=== PATIENT | female | born 1930 | race Caucasian/White ===

== ENCOUNTER 2017-01-29 14:24 | Inpatient (IN) | payer MEDICARE, OTHER ==
--- NOTE | ~2017-01-29 | CN ---
Consultation Report [facility] [address] [place]. [address] NAME: RAÚL MESSINA : 32 STATUS : ADM IN PAT#: [id number] AGE: 86 ADM/REG DATE : 01/29/17 MR#: [id number] REPORT SERV DATE: 02/02/17 DICTATED BY: JHONATAN GRAHAM DATE: 02/02/17 REPORT STATUS : Draft TRANSCRIBED BY: MODDonna DATE: 02/02/17 INFECTIOUS DISEASE CONSULT DATE OF CONSULTATION: REASON FOR REFERRAL: Evaluation and treatment of genitourinary tract infection associated with sepsis. HISTORY OF PRESENT ILLNESS: The patient is an 86-year-old female, she has a history of hypertension, hypothyroidism, CLL, and recurrent urinary tract infections that have generally been associated with stones. She began feeling ill about a week before 01/27/2017 emergency room visit, she had fevers, chills, nausea, and vomiting. She was very reluctant to be seen, but eventually consented to come in on 01/27/2017 and get checked out. She was there through the evening and early 01/28/2017. She had a markedly abnormal urinalysis greater than 182 white blood cells. It was felt to be the cause of her illness. She had cultures taken, received one dose of Rocephin animal chiropractor of 01/28/2017, and then was discharged on Macrodantin. She had a blood culture that came up early on 01/29/2017, that is positive for E coli, one of two, so, she was called back in and admitted and started on first Zosyn in the emergency room along with a dose of vancomycin for unclear reason. She got one dose of Levaquin and after two days when the sensitivity of the organism returned, it was changed to Rocephin. She quickly improved, had no fever here. White blood cell count is markedly abnormal because of her CLL, and has been hard to use as a guide, but generally she is steadily improving. It was elected to give her a 10-day course of Rocephin after discussions with Infectious Disease because she has a prosthetic hip. She had a PICC line placed yesterday. She was evaluated by Urology while here and as she has stone, she has evidence of hydronephrosis on the right and pyelonephritis on imaging. There was no obstructions and no indication for procedure. She will continue to be followed closely by Urology after discharge. PAST MEDICAL HISTORY: Otherwise unremarkable. MEDICATIONS: She is on Rocephin. ALLERGIES: SHE HAS NO KNOWN ANTIMICROBIAL ALLERGIES. SOCIAL HISTORY: She is single. 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 Nonsmoker. No history of alcohol or substance abuse. FAMILY HISTORY: Noncontributory. PHYSICAL EXAMINATION: GENERAL: A nontoxic elderly female, in no acute distress. She is alert and oriented x3. VITAL SIGNS: Her temperature is 98.5, pulse 73, respirations 18, blood pressure 157/70, and Consultation Report [place] [id number] [facility] [place]. [address] NAME: RAÚL MESSINA : 32 STATUS : ADM IN [facility]#: [id number] AGE: 86 ADM/REG DATE : 01/29/17 MR#: [id number] REPORT SERV DATE: 02/02/17 DICTATED BY: JHONATAN GRAHAM DATE: 02/02/17 REPORT STATUS : Draft TRANSCRIBED BY: MEEK DATE: 02/02/17 weight 70 kg. HEENT: Sclerae clear. No oral lesions. NECK: Supple without lymphadenopathy. LUNGS: There are some crackles in the bases otherwise clear. HEART: Regular rate and rhythm. ABDOMEN: Soft and nontender. Positive bowel sounds. No masses or hepatosplenomegaly. No costovertebral angle tenderness. EXTREMITIES: Without clubbing, cyanosis, or edema. No swollen, red, or hot joints. No skin lesions or rashes and a new PICC line site looks good in the left upper extremity. She has puncture sites on the right where attempts were initially made to place it there that were unsuccessful, but none of those appear to be inflamed. LABORATORY DATA: White count was 64.7 when she came, last time it was checked on 01/30/2017 it was 55.2, with hematocrit of 31.2, platelets 224, 20 segs and no bands on the differential. BUN and creatinine 22 and 1.4, creatinine had been 1.8 as a high on 01/29/2017. IMPRESSION: Pyelonephritis with associated sepsis, due to Escherichia coli and in turn likely all due originally to stone. She is doing much better. Repeat blood cultures done on 01/29/2017 were negative. A repeat urine culture on 01/29/2017 evening also was negative. RECOMMENDATIONS: 1. I agree with Rocephin. 2. We will discharge today, now that she has a PICC line, and I will arrange home IV therapy using Rocephin to go through 02/08/2017. I will follow the patient here if she is not discharged today or as needed as an outpatient if she is discharged. I appreciate very much your consulting on this patient. JAYLON/MEEK Jhonatan Graham M.D. / [id number] CC: Brad Arrington Jr, MD Mary Hammock, M.D. William Young Jr., M.D.
--- NOTE | ~2017-01-29 | IDS ---
Interim Discharge Summary [facility] [address] [place]. [address] NAME: RAÚL MESSINA : 32 STATUS : ADM IN PAT#: [id number] AGE: 86 ADM/REG DATE : 01/29/17 MR#: [id number] REPORT SERV DATE: 02/01/17 DICTATED BY: JR. ARRINGTON WILLIAM JOHN DATE: 02/01/17 REPORT STATUS : Draft TRANSCRIBED BY: MODL DATE: 02/01/17 ADMISSION DATE: 01/29/2017 DISCHARGE DATE: Anticipate discharge in the morning. WORKING DIAGNOSES: Include, 1. 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 2. Left hydronephrosis with renal stones. 3. Acute kidney injury. 4. Hypoxic respiratory failure. 5. Chronic lymphocytic leukemia. 6. Hypertension. 7. Hyperkalemia. OPERATIONS, PROCEDURES, AND TREATMENTS: Include, 1. Blood cultures done 01/28/2017 grew one of four bottles of Escherichia coli. 2. Urine culture done 01/28/2017, which grew Escherichia coli, sensitive to nitrofurantoin, gentamicin, cefazolin, tobramycin, aztreonam, Bactrim, and Zosyn. 3. Followup blood cultures on 01/29/2017 were sterile today. 4. Follow up urine culture on 01/29/2017 is no growth to date. 5. Chest x-ray done 01/29/2017 showed atelectasis with large hiatal hernia. 6. CT of the chest, abdomen, and pelvis done 01/29/2017 showed bilateral nephrolithiasis with left hydronephrosis. Mild hydroureter and periureteral and perinephric stranding suggestive of obstructing stone. 7. Right basilar atelectasis with more confluent infiltrate and accompanying effusion in the base. 8. PICC line insertion, done 02/01/2017. CONSULTING PHYSICIAN: Include Dr. Jarrod Savage of Urology. ANTICIPATED DISCHARGE MEDICATIONS: Include, 1. Norvasc 10 mg orally daily. 2. Rocephin 1 g IV daily through 02/10/2017. 3. Cholestyramine 4 g orally daily. 4. Synthroid 75 mcg orally daily. 5. Oxybutynin 10 mg orally three times a day. 6. Clonidine 0.2 mg twice a day. 7. Meclizine 25 mg three times a day as needed. 8. Tramadol 50 mg daily as needed. HOSPITAL COURSE: The patient is a very pleasant 86-year-old female with a history of CLL who presented to the emergency room with complaint of urinary tract infection and bacteremia. Apparently, the patient has been in the emergency room in the previous few days and had one culture positive for Escherichia coli with call to return to the hospital. She had no new Interim Discharge Summary [address] [address] NAME: RAÚL MESSINA : 32 STATUS : ADM IN PAT#: [id number] AGE: 86 ADM/REG DATE : 01/29/17 MR#: [id number] REPORT SERV DATE: 02/01/17 DICTATED BY: JR. ARRINGTON WILLIAM JOHN DATE: 02/01/17 REPORT STATUS : Draft TRANSCRIBED BY: MEEK DATE: 02/01/17 complaints. On an initial exam, she was afebrile. Blood pressure is 121/60, heart rate 80, respiratory rate of 18, she was saturating 86% on room air with 92% on 3 L oxygen. Exam was otherwise unremarkable. Review of her culture data did show Escherichia coli in the blood and urine. The patient is admitted to the hospital for urinary tract infection with bacteremia. CT of the chest, abdomen, and pelvis were reviewed did show what appeared to be hydronephrosis with kidney stones. Nephrology saw the patient, felt this was not obstructive and recommended outpatient followup with Dr. Warner. In addition, I did discuss the Escherichia coli presence in the blood with Dr. Armas of Infectious Disease. He felt the presence of metallic prostheses in the hip and knee, this patient would require IV antibiotics for a 10- day course. Fluoroquinolones were resistant. We had placed a PICC line and the plan is to discharge the patient home on IV ceftriaxone 1 g IV daily through 02/10/2017. Regarding the patient's hypoxic respiratory failure, this likely is a chronic condition. We will check a desaturation study and set the patient up for home oxygen if needed. The patient did have multiple episodes of hyperkalemia. A review of the literature does show that with a quite elevated white blood counts in CLL, this can be a spurious finding if the sample is at room temperature for a period of time prior to this sampling. We will plan to repeat the study now, and if the potassium remains elevated, we will go ahead and treat this and recheck in the morning. Anticipate discharge the patient home tomorrow. FOLLOWUP INSTRUCTIONS: 1. Will need IV Rocephin 1 g IV daily through 02/10/2017. 2. Follow up with primary care provider, Dr. Clarice Garrett in one to two weeks. 3. Follow up with Dr. Warner in two weeks regarding kidney stones and possible hydronephrosis. 4. May need home oxygen. 5. For today's exam and laboratory, please see daily progress note. WJF/MODL Brad Arrington Jr, MD / [id number] CC: Brad Arrington Jr, MD Mary Hammock, M.D.
--- NOTE | ~2017-01-29 | CN ---
Consultation Report [facility] [address] [place]. [address] NAME: RAÚL CHRISTIE : 32 STATUS : ADM IN PAT#: [id number] AGE: 86 ADM/REG DATE : 01/29/17 MR#: [id number] REPORT SERV DATE: 01/30/17 DICTATED BY: JARROD XIONG III DATE: 01/30/17 REPORT STATUS : Draft TRANSCRIBED BY: MODL DATE: 01/30/17 DATE OF CONSULTATION: REASON FOR CONSULTATION: Urinary tract infection and bacteremia and left hydronephrosis. HISTORY OF PRESENT ILLNESS: Ms. Christie is 86-year-old white female, who is a patient Dr. Brad Warner secondary to nephrolithiasis. She recently had blood cultures, which were positive, and a positive urine culture. She is being admitted by the hospitalist. I am asked to see regarding her stones and left hydronephrosis and perinephric stranding. PAST MEDICAL HISTORY: Nephrolithiasis, cataracts, hypertension, hypercholesterolemia, sleep apnea, arthritis, irritable bowel syndrome, incontinence, and CLL. SURGICAL HISTORY: Back surgery in 1997, cataracts, left total hip replacement, hysterectomy, right knee scope. MEDICATIONS: Home medications are reviewed. ALLERGIES: SHE IS ALLERGIC TO NICARDIPINE. PHYSICAL EXAMINATION: VITAL SIGNS: The patient currently is afebrile with stable vital signs. GENERAL: She is awake, alert, and appears comfortable. She does have some left-sided tenderness. LABORATORY DATA: BUN and creatinine are 32 and 1.69. Repeat blood culture is pending. IMAGING: CT scan is reviewed and she does have bilateral stones over there in the periphery of the kidneys. There is dilation of the renal pelvis on the left and in the proximal ureter, but no stone is noted. ASSESSMENT: 1. Left pyelonephritis. 2. Left hydronephrosis. I believe this hydronephrosis is secondary to inflammation from the infection and not from an obstructing stone. 3. Urinary tract infection. RECOMMENDATION: I do not feel that a stent is warranted at this point in time and that the dilation and perinephric stranding will resolve with treatment of the infection. Her stones will need to be addressed after treatment of the infection in the future. PH/MODL Consultation Report [facility] [address] [place]. [address] NAME: RAÚL CHRISTIE : 32 STATUS : ADM IN PAT#: [id number] AGE: 86 ADM/REG DATE : 01/29/17 MR#: [id number] REPORT SERV DATE: 01/30/17 DICTATED BY: JARROD XIONG III DATE: 01/30/17 REPORT STATUS : Draft TRANSCRIBED BY: MODL DATE: 01/30/17 Jarrod Xiong III, M.D. / [id number] CC: Brad Arrington Jr, MD Mary Hammock, M.D.
--- NOTE | ~2017-01-29 | HP ---
History And Physical [facility] [address] [place]. [address] NAME: RAÚL MESSINA : 32 STATUS : ADM IN PAT#: [id number] AGE: 86 ADM/REG DATE : 01/29/17 MR#: [id number] REPORT SERV DATE: 01/29/17 DICTATED BY: NICOLETTE VERAS DATE: 01/29/17 REPORT STATUS : Draft TRANSCRIBED BY: MODL DATE: 01/29/17 DATE OF ADMISSION: 01/29/2017 CHIEF COMPLAINT: Urinary tract infection and "bacteremia". HISTORY OF PRESENT ILLNESS: This is a very pleasant 86 years old female. She has a history of CLL, history of recurrent urinary tract infections, history of hypertension, hypothyroidism, and urinary incontinence, and chronic diarrhea, presenting today to [facility] Emergency Room after she has been called home last night due to the presence of blood cultures positive for E coli. The patient has a history of recurrent urinary tract infection. About one week ago, she got sick with fever and chills, nausea and vomiting. She really did not want to go to a hospital to be assessed and evaluated nor to her primary care provider. However, she had been so weak and not feeling well on 01/27/2017. She came today to [facility] Emergency Room. She has been diagnosed with urinary tract infection, placed on Macrobid, and discharged home. Last night, she has been called by the pharmacist since one of the blood cultures came back positive for E coli and as a result, she did not want to come yesterday to hospital, but she decided to come today after she went to work. She did not feel worse, but she did have some weakness and appetite, subjective fever nor any more nausea or vomiting. No diarrhea or constipation. No hematemesis or melena. No hematochezia. No shortness of breath. No chest pain. No palpitations. No other complaints. The patient has been evaluated in the emergency room, and Hospitalist Service has been asked for admission, further evaluation, and treatment. PAST MEDICAL HISTORY: Significant for hypertension, recurrent UTI, urinary incontinence, degenerative joint disease, osteoarthritis, hypothyroidism, and social history. PAST SURGICAL HISTORY: Includes left hip replacement, left total knee replacement, and hysterectomy. PAST SOCIAL HISTORY: The patient denies tobacco, alcohol, or IV drugs. ALLERGIES: SHE IS ALLERGIC TO NICARDIPINE. MEDICATIONS AT HOME: Include Norvasc, Prevalite, Catapres, Synthroid, Antivert, Macrobid, Ditropan, Ultram, and Diovan. REVIEW OF SYSTEMS: A 14-point review of systems has been obtained and pertinent positive has been listed into the history of present illness. Otherwise, negative except those underlying above. OBJECTIVE: VITAL SIGNS: Currently, the patient is afebrile, blood pressure 121/60, heart rate 80, respiratory rate 18, saturating 86% on room air, but 92% on 3 L of oxygen. GENERAL: She is a very pleasant, well-developed, well-nourished female, in no acute distress. She is currently alert and oriented x3. She is nonfocal. She follows all her commands appropriately. HEENT: Shows pupils equal, round, and reactive to light. Extraocular movements intact. No History And Physical [address] [address] NAME: RAÚL MESSINA : 32 STATUS : ADM IN [facility]#: [id number] AGE: 86 ADM/REG DATE : 01/29/17 MR#: [id number] REPORT SERV DATE: 01/29/17 DICTATED BY: NICOLETTE VERAS DATE: 01/29/17 REPORT STATUS : Draft TRANSCRIBED BY: MEEK DATE: 01/29/17 JVD. No lymphadenopathy. No thyromegaly appreciated. CHEST: Eval shows bilateral air entry. Clear anteroposterior. No wheezes, crackles, or rhonchi appreciated. Decreased breath sounds bibasilarly. CARDIOVASCULAR: She has regular rate and rhythm. S1, S2 positive. No S3, no S4. No murmurs, rubs, or gallops appreciated. ABDOMEN: Soft with positive bowel sounds. Nontender. No guarding. No rebound. EXTREMITIES: No clubbing, cyanosis, or edema. NEUROLOGIC: She is alert and oriented x3. She is nonfocal. She follows all her commands appropriately. LABORATORY DATA: Labs from today include sodium of 141, potassium 5.1, chloride 100, CO2 of 20, BUN 30, creatinine 1.80, glucose is 85, her total protein 6.1, albumin 2.8, globulin 3.3, total bilirubin is 0.5, alkaline phosphatase 99, ALT 16, AST 13. Also, her white count is 67.9, hemoglobin 9.8, hematocrit 30.7, platelets are 224. Her blood cultures from 01/28/2017 show one set of E coli and repeat blood cultures today are pending and urine cultures from 01/28/2017 show gram-negative bacilli to be identified. Currently, CT of the chest, abdomen, and pelvis without contrast is pending. ASSESSMENT: This is a very pleasant 86 years old female with: 1. Urinary tract infection and Escherichia coli bacteremia. 2. Acute kidney injury. 3. Hypoxic respiratory failure. 4. History of hypertension. 5. Chronic lymphocytic leukemia. 6. Urinary incontinence. 7. Degenerative joint disease, osteoarthritis. PLAN: The patient is going to be admitted to Hospitalist Service. 1. Regarding her urinary tract infection, we are going to place her on Zosyn, follow up the repeat cultures. We will repeat UA and urine culture. We will follow up the CT of the abdomen and pelvis without contrast. We will check procalcitonin level. Strict I's and O's. Strict daily weights. IV fluids. Vigorous IV hydration as well. 2. Acute kidney injury. We are going to provide vigorous IV hydration. We are going to check a CT of the abdomen and pelvis, hold her Diovan. We are going to check her spot urine for sodium, creatinine, and osmolarity. 3. Hypoxic respiratory failure. We are going to provide nebulizers, oxygen. We are going to get a CAT scan of the chest without contrast and we will check BNP as well as a set of cardiac enzymes. 4. Hypertension. We will continue her home medication. Provide p.r.n. hydralazine as needed. 5. Urinary incontinence. We are going to continue her home medications. 6. CLL. 7. We are going to provide reasonable pain and nausea control as well as GI and DVT prophylaxis. That has been discussed extensively with the patient. All the questions have been answered in full. Further workup and recommendation pending above. It is worthwhile to note that the patient is going to be followed by Hospitalist Service. History And Physical [address] [place]. [address] NAME: MAYURIRAÚL CASPER : 32 STATUS : ADM IN [facility]#: [id number] AGE: 86 ADM/REG DATE : 01/29/17 MR#: [id number] REPORT SERV DATE: 01/29/17 DICTATED BY: NICOLETTE VERAS DATE: 01/29/17 REPORT STATUS : Draft TRANSCRIBED BY: MODL DATE: 01/29/17 CF/DAYNEL Nicolette Veras M.D. / [id number] CC: MD Clarice Aparicio M.D.
--- NOTE | ~2017-01-29 | DS ---
Discharge Summary [facility] [address] [place]. [address] NAME: RAÚL MESSINA : 34 STATUS : DIS IN PAT#: [id number] AGE: 86 ADM/REG DATE : 01/29/17 MR#: [id number] REPORT SERV DATE: 02/03/17 DICTATED BY: JERRY JANE DATE: 02/02/17 REPORT STATUS : Draft TRANSCRIBED BY: MEEK DATE: 02/02/17 ADMISSION DATE: 01/29/2017 DISCHARGE DATE: 02/02/2017 CONSULTATION: 1. Urology, Dr. Savage. 2. Infectious Disease, Dr. Armas. 3. [facility] INVASIVE PROCEDURES: 1. PICC line insertion, done on 02/01/2017, without any significant complication. 2. Blood cultures done on 01/28/2017, grew 1 of 4 bottles of E. coli. 3. Urine culture done on 01/28/2017, which grew E. coli. 4. Chest x-ray done on 01/29/2017, that showed atelectasis with large hiatal hernia. IMAGING: CT abdomen and pelvis, impression: 1. Bilateral nephrolithiasis with left hydronephrosis, mild hydroureter and periureteral and perinephric stranding suggesting obstructing stones. 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 2. Right bibasilar atelectasis with more confluent infiltrate and accompanying effusion at the left base. Findings on the left suspicious for pneumonia. DISCHARGE DIAGNOSES: 1. Urinary tract infection due to Escherichia coli, resistant to fluoroquinolones. 2. Escherichia coli bacteremia. 3. Left nephrolithiasis with mild obstructing stones. 4. Acute kidney injury on chronic kidney disease. 5. Chronic lymphocytic leukemia. 6. Hypoxemic respiratory failure. 7. Hypertension. 8. Hyperkalemia. DISCHARGE CONDITION: Stable. HISTORY OF PRESENT ILLNESS: For detailed HPI, make reference to Nicolette Galvin's dictation on 01/29/2017. In brief, this is an 86-year-old female, which has history of chronic lymphocytic leukemia, recurrent urinary tract infection, hypertension, hypothyroidism and urinary incontinence, who presented to [facility] after she was found to have a blood culture that was positive for E. coli. She initially presented to the emergency room with symptoms of urinary tract infection. Urine cultures and blood cultures were taken. She was discharged on empiric antibiotics on Macrobid. However, the patient's blood culture was noted to be positive for E. coli, hence patient was called from home to come back to the emergency department for admission for IV antibiotics treatment. The patient was admitted to the hospitalist team with diagnosis of sepsis secondary to urinary tract infection. A CT of the abdomen was done in the emergency room, that shows the presence of left hydroureter with possible left nephrolithiasis with mild hydroureter. The Discharge Summary [facility] [address] [facility] [place]. [address] NAME: RAÚL MESSINA : 34 STATUS : DIS IN PAT#: [id number] AGE: 86 ADM/REG DATE : 01/29/17 MR#: [id number] REPORT SERV DATE: 02/03/17 DICTATED BY: JERRY JANE DATE: 02/02/17 REPORT STATUS : Draft TRANSCRIBED BY: MEEK DATE: 02/02/17 patient was admitted to the Hospitalist Service for further management. HOSPITAL COURSE: 1. Sepsis secondary to urinary tract infection. A repeat blood culture and urine cultures were taken in the ER. The patient was started on broad-spectrum IV antibiotics which included IV Rocephin. Also noted on initial CT of the abdomen was presence of possible left infiltrate and pleural effusion, that may be concerning for a pneumonia. Hence, IV vancomycin was also added to the patient's antibiotics on presentation. The patient's procalcitonin was 1.32, however, it was felt that pneumonia is the less likely source of infection, but the patient's source of infection will likely due to UTI, hence vancomycin was discontinued. The patient was continued on IV Rocephin. Urology was consulted given the presence of left hydroureter and left nephrolithiasis. Per Urology evaluation, on further review of CT imaging, there is no significant hydronephrosis/hydroureter. The hydroureter seen was noted to be likely related to ongoing urinary tract infection. Hence, Urology recommended to continue IV antibiotics at this time and an outpatient followup with repeat imaging and further evaluation. The patient's urine culture and sensitivity came back, it was noted to be sensitive to IV Rocephin, but resistant to levofloxacin. Given that patient has had bacteremia, it was noted by ID that the patient will require IV Rocephin. At the time of discharge, a PICC line was placed. The patient was advised to continue IV Rocephin at home, hence date of IV antibiotics is 02/08/2017 by ID recommendation. Home health care was arranged for patient prior to discharge, that will help administer patient's antibiotics. The patient will be advised. a. To follow up with primary care physician within one week of discharge. b. To follow up with primary oncologist within one to two weeks of discharge. c. To follow up with Urology within two to three weeks of discharge. d. To also follow up with Nephrology as an outpatient. 2. Acute kidney injury on chronic kidney disease stage 3. The patient's creatinine on presentation was 1.77, last known baseline was 1.06. The patient's creatinine was trended down during the course of this admission to 1.2 prior to discharge. Nephrology was consulted who followed the patient during the course of this admission. The patient was advised to continue follow up with Nephrology as an outpatient. 3. Chronic lymphocytic leukemia. The patient was advised to continue follow up with Oncology as an outpatient. DISCHARGE MEDICATIONS: 1. Amlodipine 10 mg p.o. daily. 2. Rocephin 1 g q.24 hours. 3. Cholestyramine packet 4 g p.o. daily. 4. Levothyroxine 75 mcg p.o. every morning. 5. Oxybutynin 5 mg p.o. daily. 6. Clonidine 0.2 mg p.o. b.i.d. 7. Valsartan 320 mg p.o. daily. 8. Meclizine 25 mg p.o. t.i.d. p.r.n. for dizziness. 9. Tramadol 50 mg p.o. t.i.d. p.r.n. 10.Also has IV Rocephin. Discharge Summary [address] [address] NAME: MAYURIRAÚLDRAKE : 34 STATUS : DIS IN PAT#: [id number] AGE: 86 ADM/REG DATE : 01/29/17 MR#: [id number] REPORT SERV DATE: 02/03/17 DICTATED BY: JERRY JANE DATE: 02/02/17 REPORT STATUS : Draft TRANSCRIBED BY: MEEK DATE: 02/02/17 DISCHARGE FOLLOWUP: As dictated above. DISCHARGE ACTIVITY: As tolerated. Greater than 30 minutes was used to prepare this patient's discharge, reconcile medication, and advised the patient on discharge plans and followup. DICTATED BY: MD RAFI Aparicio/MEEK Jerry Jane MD / [id number] CC: MD Clarice Aparicio M.D.
[2017-01-29 13:21] LABS: BASOPHILS 0.1 %; BASOPHILS ABSOLUTE 0.06 10/3/uL (0.0-0.16); EOSINOPHILS 0 %; HEMATOCRIT 30.7 % (36.0-48.0); HEMOGLOBIN 9.8 g/dL (12.0-16.0); IMMATURE GRANULOCYTES 0.3 %; LYMPHOCYTES 77.5 %; LYMPHOCYTES ABSOLUTE 52.64 10/3/uL (0.67-4.30); MEAN CORPUS HGB CONC 31.9 g/dL (32.0-36.0); MEAN CORPUSCULAR HEMOGLOB 31.1 pg (26.0-34.0); MEAN CORPUSCULAR VOLUME 97.5 fL (80-100); MEAN PLATELET VOLUME 9.9 fL (9.2-13.0); MONOCYTES ABSOLUTE 0.68 10/3/uL (0.21-1.20); NEUTROPHILS 21.1 %; NEUTROPHILS ABSOLUTE 14.31 10/3/uL (2.02-8.40); PLATELET COUNT 224 10/3/uL (150-400); RBC DISTRIBUTION WIDTH 16.4 % (12.0-16.0); RED CELL COUNT 3.15 10/6/uL (4.0-5.6)
[2017-01-29 13:23] LABS: ER CBC TAT 0 Hrs 10 Mins; MANUAL DIFF NO %; WHITE BLOOD CELLS 67.9 10/3/uL (4.5-10.5)
[2017-01-29 13:32] LABS: A/G RATIO 0.8 (0.7-1.9); ALBUMIN 2.8 G/DL (3.5-5.0); ALKALINE PHOSPHATASE 99 U/L (45-117); BUN (BLOOD UREA NITROGEN) 30 MG/DL (6-23); CHLORIDE, SERUM 111 MMOL/L (96-112); CO2 (CARBON DIOXIDE) 20 MMOL/L (24-34); GFR AFRICAN AMERICAN 29 ML/MIN (>=60); GFR NON AFRICAN AMERICAN 25 ML/MIN (>=60); GLOBULIN 3.3 G/DL (2.5-4.1); GLUCOSE, SERUM 85 MG/DL (60-99); POTASSIUM, SERUM 5.1 MMOL/L (3.5-5.3); SGOT(AST) 13 U/L (5-40); SGPT(ALT) 16 U/L (5-65); SODIUM, SERUM 142 MMOL/L (135-148); TOTAL BILIRUBIN 0.5 MG/DL (0-1.2); TOTAL PROTEIN 6.1 G/DL (6.0-8.5)
[2017-01-29 14:03] LABS: ER DIFF TAT 0 Hrs 50 Mins; LYMPHOCYTES 78 %; LYMPHOCYTES ABSOLUTE (CALC) 52.96 10/3/uL (0.67-4.30); MONOCYTES 1 %; MONOCYTES ABSOLUTE (CALC) 1.36 10/3/uL (0.21-1.20); NEUTROPHILS ABSOLUTE (CALC) 13.58 10/3/uL (2.02-8.40); PLATELET ESTIMATE ADQ (ADEQUATE); RBC MORPHOLOGY NORM (NORMAL); SEGMENTED NEUTROPHIL (0) 21 %; SMUDGE CELLS MANY; TOTAL NUCLEATED CELLS 100
[2017-01-29 14:10] LABS: LACTATE 0.9 MMOL/L (0.3-2.4)
[~2017-01-29 14:24] MED LIST: CALTRA600D PO; CAT2 PO; DCN100 PO; DIOVAN320 MG PO; DITRO5 PO; DRAMAMINE25 MG PO; DYAZIDE1 CAP PO; ENABLEX15 PO; K500 PO; LEVOTHYROXIN75 MCG PO; MACROBID PO; MCZ125 PO; MCZ25 PO; MOBIC7.5 PO; MULTIPLE VIT PO; NORV10 PO; PEP20 PO; PREVALITE4 G1 PO; PROBIOTIC PO; SYN075 PO; ULTRAM50 PO; VESICARE5 PO; VITAMIN B-121000 MC1 SL
[2017-01-29 17:53] LABS: FERRITIN 208 NG/ML (8-252); FREE T4 1.32 NG/DL (0.76-1.46); IRON BINDING CAPACITY 225 MCG/DL (225-410); IRON, SERUM 16 MCG/DL (35-150); PHOSPHORUS, SERUM 3.3 MG/DL (2.5-4.5); TROPONIN I 0.04 NG/ML (<0.05)
[2017-01-29 18:37] LABS: PROCALCITONIN 1.32 ng/mL (<0.5)
[2017-01-29 20:16] LABS: ASCORBIC ACID (UR NOT ORDER) NEG (NEG); BILIRUBIN, URINE NEGATIVE (NEG); KETONE, URINE TRACE MG/DL (NEG); LEUKOCYTE ESTERASE(NOT OR LARGE (NEG)
[2017-01-29 20:17] LABS: WBC (NOT ORDERED) (RFLEX) > 182 (0-5)
[2017-01-29 20:42] LABS: INTERNATIONAL NORMAL RATI 1.2 UNITS (-); PARTIAL THROMBO TIME 36.7 SEC (22.5-37.2); PROTIME (NOT ORD) 15.4 SEC (12.0-14.5)
[2017-01-30 07:15] LABS: HEMATOCRIT 31.2 % (36.0-48.0); MEAN CORPUS HGB CONC 32.1 g/dL (32.0-36.0); MEAN CORPUSCULAR HEMOGLOB 31.4 pg (26.0-34.0); MEAN CORPUSCULAR VOLUME 98.1 fL (80-100); MEAN PLATELET VOLUME 9.9 fL (9.2-13.0); PLATELET COUNT 224 10/3/uL (150-400); RBC DISTRIBUTION WIDTH 16.2 % (12.0-16.0); RED CELL COUNT 3.18 10/6/uL (4.0-5.6)
[2017-01-30 07:18] LABS: MANUAL DIFF YES %; WHITE BLOOD CELLS 55.2 10/3/uL (4.5-10.5)
[2017-01-30 07:36] LABS: LYMPHOCYTES 78 %; LYMPHOCYTES ABSOLUTE (CALC) 43.06 10/3/uL (0.67-4.30); MONOCYTES 2 %; NEUTROPHILS ABSOLUTE (CALC) 11.04 10/3/uL (2.02-8.40); PLATELET ESTIMATE ADQ (ADEQUATE); SEGMENTED NEUTROPHIL (0) 20 %; TOTAL NUCLEATED CELLS 100
[2017-01-30 07:37] LABS: RBC MORPHOLOGY NORM (NORMAL)
[2017-01-30 07:47] LABS: A/G RATIO 0.8 (0.7-1.9); ALBUMIN 2.4 G/DL (3.5-5.0); BUN (BLOOD UREA NITROGEN) 32 MG/DL (6-23); CALCIUM, SERUM 7.7 MG/DL (8.5-10.4); CHLORIDE, SERUM 114 MMOL/L (96-112); CREATININE 1.69 MG/DL (0.55-1.02); GFR AFRICAN AMERICAN 32 ML/MIN (>=60); GFR NON AFRICAN AMERICAN 27 ML/MIN (>=60); GLOBULIN 2.9 G/DL (2.5-4.1); POTASSIUM, SERUM 4.6 MMOL/L (3.5-5.3); SGOT(AST) 11 U/L (5-40); SGPT(ALT) 14 U/L (5-65); SODIUM, SERUM 140 MMOL/L (135-148); TOTAL BILIRUBIN 0.4 MG/DL (0-1.2); TOTAL PROTEIN 5.3 G/DL (6.0-8.5); VANCOMYCIN TROUGH 20.9 MCG/ML (10.0-20.0)
[2017-01-30 07:48] LABS: ALKALINE PHOSPHATASE 85 U/L (45-117); CO2 (CARBON DIOXIDE) 16 MMOL/L (24-34); GLUCOSE, SERUM 67 MG/DL (60-99)
[2017-01-31 06:35] LABS: CHLORIDE, SERUM 116 MMOL/L (96-112); CO2 (CARBON DIOXIDE) 18 MMOL/L (24-34); CREATININE 1.49 MG/DL (0.55-1.02); GFR AFRICAN AMERICAN 37 ML/MIN (>=60); GFR NON AFRICAN AMERICAN 32 ML/MIN (>=60); GLUCOSE, SERUM 76 MG/DL (60-99); POTASSIUM, SERUM 5.4 MMOL/L (3.5-5.3); SODIUM, SERUM 144 MMOL/L (135-148)
[2017-01-31 06:37] LABS: BUN (BLOOD UREA NITROGEN) 27 MG/DL (6-23)
[2017-02-01 06:45] LABS: CALCIUM, SERUM 8.2 MG/DL (8.5-10.4); CHLORIDE, SERUM 116 MMOL/L (96-112); CO2 (CARBON DIOXIDE) 18 MMOL/L (24-34); GFR AFRICAN AMERICAN 40 ML/MIN (>=60); GFR NON AFRICAN AMERICAN 34 ML/MIN (>=60); POTASSIUM, SERUM 5.5 MMOL/L (3.5-5.3); SODIUM, SERUM 141 MMOL/L (135-148)
[2017-02-01 06:47] LABS: BUN (BLOOD UREA NITROGEN) 22 MG/DL (6-23); GLUCOSE, SERUM 92 MG/DL (60-99)
[2017-02-02 07:17] LABS: BUN (BLOOD UREA NITROGEN) 19 MG/DL (6-23); CALCIUM, SERUM 8.3 MG/DL (8.5-10.4); CHLORIDE, SERUM 115 MMOL/L (96-112); CO2 (CARBON DIOXIDE) 17 MMOL/L (24-34); GFR AFRICAN AMERICAN 48 ML/MIN (>=60); GFR NON AFRICAN AMERICAN 41 ML/MIN (>=60); GLUCOSE, SERUM 83 MG/DL (60-99); POTASSIUM, SERUM 4.1 MMOL/L (3.5-5.3); SODIUM, SERUM 143 MMOL/L (135-148)
== END 2017-02-02 19:24 | disposition home health service (06) | DRG 872 ==
LOC: ER 14:24 → 1SO 15:22
PROVIDERS: Hospitalist; Internal Medicine
PROC: 02HV33Z Insertion of Infusion Device into Superior Vena Cava, Percutaneous Approach (ICD-10-PCS; principal; 2017-02-01)
DX: A41.81 Sepsis due to Enterococcus (principal); N17.9 Acute kidney failure, unspecified; J96.11 Chronic respiratory failure with hypoxia; C91.10 Chronic lymphocytic leukemia of B-cell type not having achieved remission; N13.30 Unspecified hydronephrosis; N39.0 Urinary tract infection, site not specified; J98.11 Atelectasis; N12 Tubulo-interstitial nephritis, not specified as acute or chronic; E87.5 Hyperkalemia; B96.20 Unspecified Escherichia coli [E. coli] as the cause of diseases classified elsewhere; N20.0 Calculus of kidney; I12.9 Hypertensive chronic kidney disease with stage 1 through stage 4 chronic kidney disease, or unspecified chronic kidney disease; N18.3 Chronic kidney disease, stage 3 (moderate); K58.0 Irritable bowel syndrome with diarrhea; R32 Unspecified urinary incontinence; E03.9 Hypothyroidism, unspecified; Z79.899 Other long term (current) drug therapy; Z16.23 Resistance to quinolones and fluoroquinolones; Z87.442 Personal history of urinary calculi; Z87.440 Personal history of urinary (tract) infections; Z96.642 Presence of left artificial hip joint; Z96.652 Presence of left artificial knee joint; Z88.8 Allergy status to other drugs, medicaments and biological substances
CPT/HCPCS: 36569; 36584; 71010; 71020; 71250; 74176; 77001; 80048; 80053; 80202; 81001; 82570; 82728; 83540; 83550; 83605; 83615; 83735; 83880; 83935; 84100; 84132; 84145; 84300; 84439; 84443; 84484; 85025; 85610; 85730; 87040; 87045; 87046; 87046-59; 87077; 87086; 87150; 87186; 87328; 87329; 87493; 87493-59; 87899; 87899-59; 89055; 93005; 94640; 96365; 96374; 96375; 99284; 99285; A9270-GY; C1751; C1769; J2405; J2543; J3370